=== PATIENT | male | born 1990 | race Caucasian/White ===

== ENCOUNTER 2022-06-03 11:13 | Emergency (ER) | payer MEDICAID ==
[~2022-06-03] VITALS: Ht 149.9 cm; Wt 63.5 kg
[2022-06-03 11:24] VITALS: BP 109/56
[2022-06-03] MEDS ORDERED: LIDOCAINE/EPI 2% 1:100000 20 ML VIAL INJ ONE (11:45)
[2022-06-03] MEDS ORDERED: DEXAMETHASONE 10 MG/ML VIAL IVP ONE (11:45)
[2022-06-03] MEDS ORDERED: AMPICILLIN/SULBACTAM 3 GM in NACL 0.9% 100 ML IV ONE (11:45)
[2022-06-03] MEDS ORDERED: KETOROLAC 15 MG/ML VIAL IVP ONE (11:45)
[2022-06-03] MEDS ORDERED: AMPICILLIN/SULBACTAM 3 GM VIAL ONE (12:06)
[2022-06-03 12:21] LABS: BASOPHILS # (AUTO) 0.1 K/uL (0.00-0.22); BASOPHILS % (AUTO) 0.5 % (0.0-2.0); EOSINOPHILS % (AUTO) 0.1 % (0.0-4.0); HEMATOCRIT 47.9 % (36-52); HEMOGLOBIN 16.2 g/dL (12.0-18.0); LYMPHOCYTES # (AUTO) 1.2 K/uL (2.0-11.5); MEAN CORPUSCULAR HEMOGLOBIN 31 pg (27-31); MEAN CORPUSCULAR HGB CONC 34 g/dL (33-37); MEAN CORPUSCULAR VOLUME 91.7 fL (80-94); MONOCYTES # (AUTO) 1.4 K/uL (0.8-1.0); MONOCYTES % (AUTO) 8.2 % (1.7-9.3); NEUTROPHILS # (AUTO) 14.8 K/uL (1.8-7.7); PLATELET COUNT (AUTO) 401 K/uL (140-450); RED BLOOD CELL COUNT(AUTO) 5.23 MIL/uL (4.20-6.10); RED CELL DISTRIBUTION WIDTH 14.5 % (11.6-13.7); WHITE BLOOD COUNT (AUTO) 17.5 K/uL (4.8-10.8)
--- NOTE | 2022-06-03 12:29 | NUR ---
32M presents to ED with c/o throat pain x2days. Pt reports stabbing like 8/10 pain to his throat, pain when eating/swallowing, talking, denies taking any medications at home. Pt denies touble breathing, O2 sat in triage was 96% on room air. Upon assessment, pt's tonsils appear swollen. Pt placed on pulse oximeter at bedside. Dr. Patel notified upon arrival.
[2022-06-03 12:51] LABS: LYMPHOCYTES % (AUTO) 6.8 % (20.5-51.1); NEUTROPHILS % (AUTO) 84.4 % (42.2-75.2)
[2022-06-03 12:56] LABS: ALBUMIN 3.1 g/dL (3.4-5.0); CARBON DIOXIDE 27.2 mmol/L (21-32); CREATININE 0.7 mg/dL (0.6-1.3); TOTAL BILIRUBIN 0.6 mg/dL (0.0-1.0)
[2022-06-03 13:03] LABS: ANION GAP 14.3 (8-16); POTASSIUM 3.5 mmol/L (3.5-5.1)
--- NOTE | 2022-06-03 13:25 | NUR ---
Dr. Patel at bedside for procedure.
--- NOTE | 2022-06-03 14:30 | NUR ---
Pt resting comfortably eyes closed, on bedside monitor, denies pain at this time. All needs met at this time.
--- NOTE | 2022-06-03 15:18 | NUR ---
REPORT GIVEN TO KATELYN HUSSEIN RN AT [facility] FOR CONTINUATION OF CARE
--- NOTE | 2022-06-03 15:21 | NUR ---
Report given at bedside to [facility], [facility] transport. Pt's breathing unlabored and stable for transfer to [facility].
[2022-06-03 15:22] VITALS: BP 104/56
== END 2022-06-03 15:21 | disposition short-term general hospital (02) ==
LOC: MED 11:13
DX: J36 Peritonsillar abscess (principal)
CPT/HCPCS: 36415; 70491; 71045; 80053; 83605; 85025; 86308; 87040; 87081; 87426; 93005; 96365; 96375; 99285; J0295; J1100; J1885; J2001; Q0092; Q9967